=== PATIENT | male | born 1990 | race Caucasian/White ===

== ENCOUNTER → 2024-01-02 | Outpatient (CLI) | payer OTHER | END | disposition home or self-care (01) | LOC: RAD 01:00 | PROVIDERS: ATTEND Nurse Practitioner Family | DX: S93.492A Sprain of other ligament of left ankle, initial encounter (principal); X58.XXXA Exposure to other specified factors, initial encounter; Y93.89 Activity, other specified; Y92.89 Other specified places as the place of occurrence of the external cause; Y99.8 Other external cause status ==